=== PATIENT | female | born 1990 | race Caucasian/White ===

== ENCOUNTER 2021-04-26 17:07 | Outpatient (REF) | payer OTHER, SELFPAY ==
[2021-04-28 10:59] LABS: COVID-19 RT-PCR UVMMC Result Negative (Negative)
== END 2021-04-26 17:08 | disposition home or self-care (01) ==
LOC: LBN 17:07
PROVIDERS: PCP Nurse Practitioner Family; Visit Provider Nurse Practitioner Family
DX: Z20.822 Contact with and (suspected) exposure to COVID-19 (principal)
CPT/HCPCS: U0003

== ENCOUNTER 2025-06-20 10:38 | Outpatient (REF) | payer OTHER, SELFPAY ==
--- NOTE | 2025-06-20 10:20 | PAPFT_PTH ---
PATIENT: Cherelle Waller LOC: [facility] U#:[id number] AGE/SX: 34/F ROOM: RE06/20/[address]: Charlotte Culp NP : 1990 BED: DIS: 06/20/2025 SPEC #: [id number] RECD: 06/20/25 12:56 STATUS: DEMARIO REEugene #: [id number] SAVI: 06/20/25 10:[address]: Suni CHAUHAN,[place] DEPT: [facility] Cytology RECD BY: Patrica Emanuel ENTERED: 06/20/25 12:56 SP TYPE: PAPFT OT DR: Unknown,Unknown Tissues: 1 - CX/ENDOCX FOR PAP SMEARS Procedures: PAP THIN PREP/[facility] Screening HPV DNA PROBE Comments: [id number] (HPV 16 & 18/45)
== END 2025-06-20 10:39 | disposition home or self-care (01) ==
LOC: LBN 10:38
PROVIDERS: Visit Provider Nurse Practitioner Women's Health
DX: Z12.4 Encounter for screening for malignant neoplasm of cervix (principal)
CPT/HCPCS: 88142; 87624